=== PATIENT | female | born 1965 | race Caucasian/White ===

== ENCOUNTER 2016-05-10 11:21 | Emergency (ER) | payer OTHER ==
[~2016-05-10] VITALS: Ht 157.5 cm; Wt 60.0 kg
[~2016-05-10 11:21] MED LIST: BUPR75TA PO; CLIN1CAP5 PO; DEPA500T3 PO; FAMO20 PO; MAGN400 PO; MULT-65 PO; PAXI10TA PO; PRED20 PO; RISP1 PO
[2016-05-10 11:22] VITALS: BP 115/59; PULSE 84; RESP 20; TEMP 97.9; O2SAT 96
--- NOTE | 2016-05-10 11:51 | PD ---
HPI Chief Complaint: Back/ Neck Pain or Injury Time Seen by Provider: 11:51 Travel History International Travel<30 days: No Contact w/Intl Traveler<30days: No Traveled to known affect area: No History of Present Illness HPI 50-year-old [place] female presents to the emergency Department with complaints of neck pain, back pain, radicular symptoms in the left arm, and worsening headache over the past several days. She did slip and fall proximal 2 weeks ago and symptoms gotten progressively worse since that time. She states her headache is 9/10 which is unusual for her she does have a history of migraines but she states this is worse and different. She states when she sits or stands she feels off balance and dizzy but not vertiginous. She denies or vomiting. She denies fever or chills. Her pain in the neck and shoulders is 9 out of 10 currently and worse with any type of movement. She states she is allergic to morphine, metronidazole, and Bactrim. PFSH Past Medical History Arthritis: Yes (RA) Asthma: Yes (CHILDHOOD ) Autoimmune Disease: Yes (BEALLS PALSY) Anxiety: Yes Depression: Yes (MAJOR DEPRESSIVE DISORDER) Cancer: No Cardiovascular Problems: Yes (PRE-CORNARY ARTERY DISEASE) High Cholesterol: No Chemotherapy: No Chest Pain: Yes (PALPATATION) Congestive Heart Failure: No COPD: No Cerebrovascular Accident: Yes (TIA) Diabetes: No Diminished Hearing: No Endocrine: No GERD: No Glaucoma: No Genitourinary: No Headaches: Yes Hepatitis: No Hiatal Hernia: No Hypertension: No Immune Disorder: No Kidney Stones: No Musculoskeletal: Yes Neurologic: Yes (DEMYELINATION , hx mcgrath's palsy) Psychiatric: No Reproductive: No Respiratory: Yes (asthma) Immunizations Current: Yes Migraines: Yes Radiation Therapy: No Renal Failure: No Seizures: No Sickle Cell Disease: No Sleep Apnea: No Thyroid Disease: Yes (GOITER) ?: Not : 1 Para: 1 Past Surgical History Abdominal Surgery: No Arteriovenous Shunt: No Cardiac Surgery: No Ear Surgery: No Endocrine Surgery: No Eye Surgery: Yes (BILAT LASIK) Genitourinary Surgery: Yes (BLADDER TUCK) Gynecologic Surgery: Yes (HYSTERECTOMY) Hysterectomy: Yes Joint Replacement: No Oral Surgery: Yes Pacemaker: No Thoracic Surgery: No Other Surgery: Yes Social History Alcohol Use: No Tobacco Use: No Substance Use: No Allergies-Medications (Allergen,Severity, Reaction): Coded Allergies: Metronidazole (Verified Allergy, Severe, Hives from flagyl, 05/10/16) Bactrim (Verified Allergy, Intermediate, RASH, 05/10/16) Morphine (Verified Allergy, Intermediate, Nausea/Vomiting, 05/10/16) ALSO SEVERE HEADACHE PER PT Reported Meds & Prescriptions Reported Meds & Active Scripts Active Review of Systems Except as stated in HPI: all other systems reviewed are Neg General / Constitutional: No: Fever Eyes: No: Visual changes HENT: Positive: Headaches, Lightheadedness, Neck Stiffness, Neck Pain, No: Sore Throat, Rhinitis, Rhinorrhea, Congestion, Nosebleed, Dental Difficulties, Ear Discharge, Earache Cardiovascular: No: Chest Pain or Discomfort Respiratory: No: Cough, Shortness of Breath, Wheezing Gastrointestinal: No: Nausea, Vomiting, Diarrhea, Abdominal Pain Genitourinary: No: Dysuria Musculoskeletal: Positive: Myalgias, Arthralgias, Limited ROM, Pain (see history present illness.) Skin: No Rash Neurologic: Positive: Headache, Paresthesia (in the left arm.), No: Weakness, Syncope, Focal Abnormalities, Coordination Problem, Tremor, Ataxia, Change in Mentation, Incontinence, Seizures, Sensory Disturbance Psychiatric: No: Depression Endocrine: No: Polydipsia Hematologic/Lymphatic: No: Easy Bruising Physical Exam Narrative GENERAL: Patient appears in moderate distress. SKIN: Warm and dry. HEAD: Atraumatic. Normocephalic. EYES: Pupils equal and round. No scleral icterus. No injection or drainage. ENT: No nasal bleeding or discharge. Mucous membranes pink and moist. NECK: Trachea midline. No JVD. CARDIOVASCULAR: Regular rate and rhythm. RESPIRATORY: No accessory muscle use. Clear to auscultation. Breath sounds equal bilaterally. GASTROINTESTINAL: Abdomen soft, non-tender, nondistended. Hepatic and splenic margins not palpable. MUSCULOSKELETAL: Extremities without clubbing, cyanosis, or edema. No obvious deformities. NEUROLOGICAL: Awake and alert. No obvious cranial nerve deficits. Motor grossly within normal limits. Five out of 5 muscle strength in the arms and legs. Normal speech. PSYCHIATRIC: Appropriate mood and affect; insight and judgment normal. Data Data Last Documented VS Vital Signs Date Time Temp Pulse Resp B/P Pulse Ox O2 Delivery O2 Flow Rate FiO2 05/10/16 11:22 97.9 84 20 115/59 96 Room Air Orders Apply Cervical Collar (05/10/16 11:56) Ct Brain W/O Iv Contrast(Rout) (05/10/16 11:56) Ct Cerv Spine W/O Contrast (05/10/16 11:56) Complete Blood Count With Diff (05/10/16 11:56) Comprehensive Metabolic Panel (05/10/16 11:56) Prothrombin Time / Inr (Pt) (05/10/16 11:56) Act Partial Throm Time (Ptt) (05/10/16 11:56) Iv Access Insert/Monitor (05/10/16 11:56) Ecg Monitoring (05/10/16 11:56) Oximetry (05/10/16 11:56) Ketorolac Inj (Toradol Inj) (05/10/16 13:00) Dexamethasone Inj (Decadron Inj) (05/10/16 13:00) Orphenadrine Sr (Norflex Cr) (05/10/16 13:00) Labs Laboratory Tests Test 05/10/16 12:15 White Blood Count 8.5 TH/MM3 Red Blood Count 4.16 MIL/MM3 Hemoglobin 13.1 GM/DL Hematocrit 37.6 % Mean Corpuscular Volume 90.3 FL Mean Corpuscular Hemoglobin 31.5 PG Mean Corpuscular Hemoglobin 34.8 % Concent Red Cell Distribution Width 12.8 % Platelet Count 272 TH/MM3 Mean Platelet Volume 7.5 FL Neutrophils (%) (Auto) 73.2 % Lymphocytes (%) (Auto) 11.4 % Monocytes (%) (Auto) 7.5 % Eosinophils (%) (Auto) 7.4 % Basophils (%) (Auto) 0.5 % Neutrophils # (Auto) 6.2 TH/MM3 Lymphocytes # (Auto) 1.0 TH/MM3 Monocytes # (Auto) 0.6 TH/MM3 Eosinophils # (Auto) 0.6 TH/MM3 Basophils # (Auto) 0.0 TH/MM3 CBC Comment DIFF FINAL Differential Comment Prothrombin Time 10.0 SEC Prothromb Time International 0.9 RATIO Ratio Activated Partial 23.4 SEC Thromboplast Time Sodium Level 140 MEQ/L Potassium Level 3.9 MEQ/L Chloride Level 102 MEQ/L Carbon Dioxide Level 30.0 MEQ/L Anion Gap 8 MEQ/L Blood Urea Nitrogen 14 MG/DL Creatinine 0.91 MG/DL Estimat Glomerular Filtration 66 ML/MIN Rate Random Glucose 86 MG/DL Calcium Level 9.4 MG/DL Total Bilirubin 0.2 MG/DL Aspartate Amino Transf 28 U/L (AST/SGOT) Alanine Aminotransferase 49 U/L (ALT/SGPT) Alkaline Phosphatase 79 U/L Total Protein 7.7 GM/DL Albumin 4.3 GM/DL MDM Medical Decision Making Medical Screen Exam Complete: Yes Emergency Medical Condition: Yes Differential Diagnosis Fall. Cervical neck strain. Cervical disc issue. Radiculopathy. Back pain. Muscle spasm. Narrative Course Patient is medically stable at time of exam. Cervical collar is placed on the patient due to her radicular symptoms and bony neck pain. CT of the head and neck is ordered. Labs ordered including CBC, CMP, PT PTT and INR. CT of the head shows no acute bleed or other acute findings. Patient is given 60 mg Toradol IV, 10 mg Decadron IV, and 100 mg [address] by mouth. CT of the neck shows arthritic changes but no acute process. Per radiologist. Labs are within normal limits. Patient feels somewhat improved after the medications as stated above. Patient felt stable to be discharged home. Patient will be treated with prednisone 20 mg twice a day 7 days. Patient is given Norflex 100 mg twice a day #20. Patient is also given tramadol 50 mg one every 6 hours when necessary pain. Patient should follow-up with the [facility] next week as discussed. Patient can return to emergency Department with worsening symptoms as needed. Diagnosis Primary Impression: Cervical strain, acute Qualified Code: S16.1XXA - Cervical strain, acute, initial encounter Additional Impression: Muscle spasm Referrals: [facility] [place] 1 week Patient Instructions: Cervical Sprain (ED), General Instructions, Muscle Spasm (ED) Additional Instructions: Patient felt stable to be discharged home. Patient will be treated with prednisone 20 mg twice a day 7 days. Patient is given Norflex 100 mg twice a day #20. Patient is also given tramadol 50 mg one every 6 hours when necessary pain. Patient should follow-up with the [facility] next week as discussed. Patient can return to emergency Department with worsening symptoms as needed. Med/Other Pt SpecificInfo: Prescription(s) given Disposition: DISCHARGE HOME Condition: Stable Angelo Gupta May 10, 2016 11:51
[2016-05-10 12:35] LABS: AUTOMATED NEUTROPHIL # 6.2 TH/MM3 (1.8-7.7); BASOPHIL % 0.5 % (0.0-2.0); EOSINOPHIL # 0.6 TH/MM3 (0-0.4); EOSINOPHIL % 7.4 % (0.0-4.0); HEMATOCRIT 37.6 % (35.0-46.0); HEMO FLAGS DIFF FINAL; LYMPH % 11.4 % (9.0-44.0); MEAN CELL VOLUME 90.3 FL (80.0-100.0); MEAN CORPUSCULAR HEMOGLOBIN 31.5 PG (27.0-34.0); MEAN CORPUSCULAR HGB CONC 34.8 % (32.0-36.0); MONO % 7.5 % (0.0-8.0); NEUT % 73.2 % (16.0-70.0); PLATELET COUNT 272 TH/MM3 (150-450); RED BLOOD COUNT 4.16 MIL/MM3 (4.00-5.30); RED CELL DISTRIBUTION WIDTH 12.8 % (11.6-17.2); WHITE BLOOD COUNT 8.5 TH/MM3 (4.0-11.0)
[2016-05-10 12:46] LABS: APTT (PATIENT) 23.4 SEC (24.3-30.1); INTERNATIONAL NORMALIZED RATIO 0.9 RATIO
[2016-05-10 12:50] LABS: ALT (GPT) 49 U/L (10-53); ANION GAP 8 MEQ/L (5-15); AST (GOT) 28 U/L (15-37); BLOOD UREA NITROGEN 14 MG/DL (7-18); CHLORIDE 102 MEQ/L (98-107); GLOMERULAR FILTRATION RATE 66 ML/MIN (>89); POTASSIUM 3.9 MEQ/L (3.5-5.1); SODIUM (NA) 140 MEQ/L (136-145)
[2016-05-10 12:52] LABS: ALKALINE PHOSPHATASE 79 U/L (45-117); TOTAL BILIRUBIN ADULT 0.2 MG/DL (0.2-1.0)
--- NOTE | 2016-05-10 12:52 | RADRPT ---
EXAM DATE/TIME: 05/10/2016 12:25 [facility] COMPARISON: CT BRAIN W/O CONTRAST, December 21, 2014, 13:31. INDICATIONS : Cephalgia. Fall two days ago. RADIATION DOSE: 28.26 CTDIvol (mGy) MEDICAL HISTORY : Cerebrovascular disease. SURGICAL HISTORY : None. ENCOUNTER: Initial ACUITY: 1 day PAIN SCALE: 4/10 LOCATION: cranial TECHNIQUE: Multiple contiguous axial images were obtained of the head. Using automated exposure control and adj ustment of the mA and/or kV according to patient size, radiation dose was kept as low as reasonably a chievable to obtain optimal diagnostic quality images. FINDINGS: CEREBRUM: The ventricles are normal for age. No evidence of midline shift, mass lesion, hemorrhage or acute in farction. No extra-axial fluid collections are seen. POSTERIOR FOSSA: The cerebellum and brainstem are intact. The 4th ventricle is midline. The cerebellopontine angle i s unremarkable. EXTRACRANIAL: The visualized portion of the orbits is intact. SKULL: The calvaria is intact. No evidence of skull fracture. CONCLUSION: No acute disease. Markell Del Valle MD FACR on May 10, 2016 at 12:50 Board Certified Radiologist. This report was verified electronically.
[2016-05-10] MEDS ORDERED: ORPHENADRINE CITRATE 100 MG SUSTAINED RELEASE TAB PO ONE (13:00)
[2016-05-10] MEDS ORDERED: KETOROLAC TROMETHAMINE 60 MG/2 ML (IM) VIAL IM ONE (13:00)
[2016-05-10] MEDS ORDERED: DEXAMETHASONE SOD PHOS 20 MG/5 ML VIAL IV PUSH ONE (13:00)
--- NOTE | 2016-05-10 13:26 | RADRPT ---
EXAM DATE/TIME: 05/10/2016 12:25 [facility] COMPARISON: No previous studies available for comparison. INDICATIONS : Fall two days ago. Neck pain. RADIATION DOSE: 19.45 CTDIvol (mGy) MEDICAL HISTORY : Cerebrovascular disease. Cervical spine surgery. SURGICAL HISTORY : None. ENCOUNTER: Initial ACUITY: 1 day PAIN SCALE: 5/10 LOCATION: neck TECHNIQUE: Volumetric scanning of the cervical spine was performed. Multiplanar reconstructions in the sagittal, coronal and oblique axial planes were performed. Using automated exposure control and adjustment o f the mA and/or kV according to patient size, radiation dose was kept as low as reasonably achievable to obtain optimal diagnostic quality images. FINDINGS: There are degenerative changes present in the cervical spine. C1 and C2 are unremarkable. C2-C3: The bony spinal canal is normal in size. No evidence of disc bulge or herniation. The neural forami na are bilaterally patent. C3-C4: The bony spinal canal is normal in size. No evidence of disc bulge or herniation. The neural forami na are bilaterally patent. C4-C5: The bony spinal canal is normal in size. No evidence of disc bulge or herniation. The neural forami na are bilaterally patent. C5-C6: Mild uncinate ridging is present without significant spinal stenosis, neural foramina are adequate. C6-C7: The bony spinal canal is normal in size. No evidence of disc bulge or herniation. The neural forami na are bilaterally patent. C7-T1: The bony spinal canal is normal in size. No evidence of disc bulge or herniation. The neural forami na are bilaterally patent. CONCLUSION: Degenerative changes as described above. Markell Del Valle MD FACR on May 10, 2016 at 12:51 Board Certified Radiologist. This report was verified electronically.
[2016-05-10] MEDS ORDERED: ORPH100T99 PO (13:44)
[2016-05-10] MEDS ORDERED: TRAM50TA PO (13:44)
[2016-05-10] MEDS ORDERED: PRED20 PO (13:44)
== END 2016-05-10 14:01 | disposition home or self-care (01) ==
LOC: NEPB 11:21
DX: S16.1XXA Strain of muscle, fascia and tendon at neck level, initial encounter (principal); M62.838 Other muscle spasm; R51 Headache; G51.0 Bell's palsy; Z86.73 Personal history of transient ischemic attack (TIA), and cerebral infarction without residual deficits; W01.0XXA Fall on same level from slipping, tripping and stumbling without subsequent striking against object, initial encounter; Y93.9 Activity, unspecified; Y92.9 Unspecified place or not applicable
CPT/HCPCS: 70450; 72125; 80053; 85025; 85610; 85730; 96372; 96374; 99284; J1100; J1885

== ENCOUNTER 2016-05-28 00:49 | Emergency (ER) | payer OTHER ==
[~2016-05-28] VITALS: Ht 157.5 cm; Wt 60.0 kg
[~2016-05-28 00:49] MED LIST changes: -BUPR75TA PO; -CLIN1CAP5 PO; -DEPA500T3 PO; -FAMO20 PO; -MAGN400 PO; -MULT-65 PO; +ORPH100T99 PO; -PAXI10TA PO; -RISP1 PO; +TRAM50TA PO
[2016-05-28 00:52] VITALS: BP 121/63; PULSE 95; RESP 16; TEMP 97.8; O2SAT 98
[2016-05-28 03:58] VITALS: BP 113/59; PULSE 102; RESP 16; TEMP 98.5; O2SAT 95
[2016-05-28 04:12] LABS: AUTOMATED NEUTROPHIL # 8.7 TH/MM3 (1.8-7.7); BASOPHIL # 0.1 TH/MM3 (0-0.2); BASOPHIL % 0.5 % (0.0-2.0); EOSINOPHIL # 0.9 TH/MM3 (0-0.4); EOSINOPHIL % 7.6 % (0.0-4.0); HEMO FLAGS DIFF FINAL; LYMPH % 7.2 % (9.0-44.0); LYMPHOCYTE # 0.8 TH/MM3 (1.0-4.8); MEAN CELL VOLUME 89.4 FL (80.0-100.0); MEAN CORPUSCULAR HEMOGLOBIN 31.8 PG (27.0-34.0); MEAN CORPUSCULAR HGB CONC 35.6 % (32.0-36.0); MONO % 8.6 % (0.0-8.0); NEUT % 76.1 % (16.0-70.0); PLATELET COUNT 270 TH/MM3 (150-450); RED BLOOD COUNT 4.02 MIL/MM3 (4.00-5.30); RED CELL DISTRIBUTION WIDTH 12.9 % (11.6-17.2); WHITE BLOOD COUNT 11.4 TH/MM3 (4.0-11.0)
[2016-05-28] MEDS ORDERED: KETOROLAC TROMETHAMINE 30 MG/ML (IVP) VIAL IV PUSH ONE (04:45)
[2016-05-28] MEDS ORDERED: ONDANSETRON HCL 4 MG/2 ML VIAL IV ONE (04:45)
[2016-05-28] MEDS ORDERED: SODIUM CHLOR 0.9% 1000 ML INJ 1,000 ML IV ONE (04:45)
[2016-05-28 04:47] LABS: ALKALINE PHOSPHATASE 103 U/L (45-117); TOTAL BILIRUBIN ADULT 0.2 MG/DL (0.2-1.0)
[2016-05-28 04:56] LABS: ALT (GPT) 112 U/L (10-53); ANION GAP 7 MEQ/L (5-15); AST (GOT) 52 U/L (15-37); BICARBONATE 28.1 MEQ/L (21.0-32.0); BLOOD UREA NITROGEN 9 MG/DL (7-18); CHLORIDE 106 MEQ/L (98-107); GLOMERULAR FILTRATION RATE 67 ML/MIN (>89); SODIUM (NA) 141 MEQ/L (136-145)
[2016-05-28 04:57] LABS: POTASSIUM 4.1 MEQ/L (3.5-5.1)
[2016-05-28 05:05] LABS: BLOOD, URINE TRACE (NEG); COMMENT (UR) CULT NOT INDICATED; CULTURE IF INDICATED CULT NOT INDICATED; GLUCOSE,URINE NEG (NEG); KETONE, URINE NEG (NEG); MUCUS URINE FEW /lpf (OCC); NITRITE,URINE NEG (NEG); PH, URINE 5.5 (5.0-8.5); SQUAMOUS EPITHELIAL CELL URINE 5 /hpf (0-5); URINE COLOR YELLOW (YELLW/STRAW)
[2016-05-28] MEDS ORDERED: IOHEXOL 350 MG/ML 10 ML VIAL (for RAD DIAG) IV ONE (05:28)
--- NOTE | 2016-05-28 05:40 | RADRPT ---
EXAM DATE/TIME: 05/28/2016 05:24 [facility] COMPARISON: No previous studies available for comparison. INDICATIONS : Right upper abdomen and flank pain. IV CONTRAST: 95 cc Omnipaque 350 (iohexol) IV ORAL CONTRAST: No oral contrast ingested. RADIATION DOSE: 6.39 CTDIvol (mGy) MEDICAL HISTORY : Cardiovascular disease. SURGICAL HISTORY : Hysterectomy. ENCOUNTER: Initial ACUITY: 4 - 6 days PAIN SCALE: 9/10 LOCATION: Right upper abdomen and flank. TECHNIQUE: Volumetric scanning of the abdomen and pelvis was performed. Using automated exposure control and ad justment of the mA and/or kV according to patient size, radiation dose was kept as low as reasonably achievable to obtain optimal diagnostic quality images. FINDINGS: Small pericardial effusion. Liver, gallbladder, spleen, pancreas, adrenal glands are normal. Small hi atal hernia. Kidneys unremarkable. The urinary bladder unremarkable. Left ovary is normal. The patien t is status post hysterectomy. Right ovary not well visualized. A large amount of stool is noted thro ughout the colon. The appendix is normal. No free fluid or free air. Osseous structures are intact. L dami bases are clear. No inflammatory changes are seen within the abdomen or pelvis. CONCLUSION: 1. Large amount of stool throughout the colon which can be seen with constipation. 2. Small pericardial effusion. Isaac Mayorga MD on May 28, 2016 at 5:36 Board Certified Radiologist. This report was verified electronically.
--- NOTE | 2016-05-28 06:36 | PD ---
HPI Chief Complaint: Abdominal Pain Time Seen by Provider: 03:54 Travel History International Travel<30 days: No Contact w/Intl Traveler<30days: No Traveled to known affect area: No History of Present Illness HPI The patient is a 50 year old female who presents to the [facility] emergency department with a history of abdominal pain that she reports began on . The patient reports that the pain has been coming and going, however since yesterday at 11 AM it became constant. She reports that the pain as an aching sensation that is constant with intermittent sharp spasms that shoots through to the right side of her back. She reports that she's had nausea and vomiting 6 over the last 24 hours. She denies having any diarrhea. Her last bowel movement was yesterday and was normal. She denies having any blood in her stool or black or tarry stools. The patient reports that when this first started she was seen at [facility] and had an evaluation done. The patient provides her laboratory studies at this time. Her laboratory studies are remarkable for an AST of 49, ALT of 110. An ultrasound was done and showed no evidence of gallstones. The patient was discharged home with a prescription for Bentyl, Zofran, and tramadol. The patient reports that she has had some indigestion. She reports that the tramadol has not been helping. The patient is followed by the [facility] for her primary care. The patient denies any recent fevers, cough, congestion, neck pain, chest pain, shortness of breath,urinary symptoms, or neurologic symptoms. [facility] Past Medical History Narrative Medical The patient's past medical history is significant for a history of migraine headaches, anxiety, depression, Ferrer's palsy, palpitations. Arthritis: Yes (RA) Asthma: Yes (CHILDHOOD ) Autoimmune Disease: Yes (BEALLS PALSY) Anxiety: Yes Depression: Yes (MAJOR DEPRESSIVE DISORDER) Cancer: No Cardiovascular Problems: Yes (PRE-CORNARY ARTERY DISEASE) High Cholesterol: No Chemotherapy: No Chest Pain: Yes (PALPATATION) Congestive Heart Failure: No COPD: No Cerebrovascular Accident: Yes (TIA) Diabetes: No Diminished Hearing: No Endocrine: No GERD: No Glaucoma: No Genitourinary: No Headaches: Yes Hepatitis: No Hiatal Hernia: No Hypertension: No Immune Disorder: No Kidney Stones: No Musculoskeletal: Yes Neurologic: Yes (DEMYELINATION , hx ferrer's palsy) Psychiatric: No Reproductive: No Respiratory: Yes (asthma) Immunizations Current: Yes Migraines: Yes Radiation Therapy: No Renal Failure: No Seizures: No Sickle Cell Disease: No Sleep Apnea: No Thyroid Disease: Yes (GOITER) ?: Not : 1 Para: 1 Past Surgical History Narrative Surgical The patient's past surgical history is significant for a hysterectomy. Abdominal Surgery: No Arteriovenous Shunt: No Cardiac Surgery: No Ear Surgery: No Endocrine Surgery: No Eye Surgery: Yes (BILAT LASIK) Genitourinary Surgery: Yes (BLADDER TUCK) Gynecologic Surgery: Yes (HYSTERECTOMY) Hysterectomy: Yes Joint Replacement: No Oral Surgery: Yes Pacemaker: No Thoracic Surgery: No Other Surgery: Yes Social History Alcohol Use: No Tobacco Use: No Substance Use: No Allergies-Medications (Allergen,Severity, Reaction): Coded Allergies: Metronidazole (Verified Allergy, Severe, Hives from flagyl, 05/28/16) Bactrim (Verified Allergy, Intermediate, RASH, 05/28/16) Morphine (Verified Allergy, Intermediate, Nausea/Vomiting, 05/28/16) ALSO SEVERE HEADACHE PER PT Reported Meds & Prescriptions Reported Meds & Active Scripts Active Tramadol (Tramadol HCl) 50 Mg Tab 50 Mg PO Q6H PRN Prednisone 20 Mg Tab 20 Mg PO BID Orphenadrine CR (Orphenadrine Citrate) 100 Mg Tab 100 Mg PO Q12HR Review of Systems Except as stated in HPI: all other systems reviewed are Neg General / Constitutional: No: Fever Eyes: No: Visual changes HENT: No: Headaches Cardiovascular: No: Chest Pain or Discomfort Respiratory: No: Shortness of Breath Gastrointestinal: Positive: Nausea, Vomiting, Abdominal Pain, Indigestion, No : Diarrhea, Constipation, Changes in Bowel Habits, Loss of Appetite Genitourinary: Positive: Flank Pain (right flank pain), No: Urgency, Frequency , Dysuria Musculoskeletal: No: Pain Skin: No Rash Neurologic: No: Weakness Psychiatric: No: Depression Endocrine: No: Polydipsia Hematologic/Lymphatic: No: Easy Bruising Physical Exam Narrative General: The patient is a well-developed well-nourished female in no acute distress. Head and Neck exam: Head is normocephalic atraumatic. Eyes: EOMI, pupils are equal round and reactive to light. Nose: Midline septum with pink mucous membranes Mouth: Dentition unremarkable. Moist mucus membranes. Posterior oropharynx is not erythematous. No tonsillar hypertrophy. Uvula midline. Airway patent. Neck: No palpable lymphadenopathy. No nuchal rigidity. No thyromegaly. Cardiovascular: Regular rate and rhythm without murmurs, gallops, or rubs. Lungs: Clear to auscultation bilaterally. No wheezes, rhonchi, or rales. Abdomen: Soft, with reported tenderness on palpation in the right upper quadrant of the abdomen. The patient has no other tenderness on palpation of the other quadrants of the abdomen. No guarding, rebound, or rigidity. Negative [place] sign. Extremities: No clubbing, cyanosis, or edema. 2+ pulses in all 4 extremities. Back: No spinous process tenderness to palpation. The patient has right-sided CVA tenderness on palpation. Neurologic Exam: Grossly nonfocal. Skin Exam: No rash noted. Intact skin that is warm and dry. Data Data Last Documented VS Vital Signs Date Time Temp Pulse Resp B/P Pulse Ox O2 Delivery O2 Flow Rate FiO2 05/28/16 03:58 98.5 102 16 113/59 95 Room Air Orders Complete Blood Count With Diff (05/28/16 03:54) Comprehensive Metabolic Panel (05/28/16 03:54) Lipase (05/28/16 03:54) Urinalysis - C+S If Indicated (05/28/16 03:54) Iv Access Insert/Monitor (05/28/16 03:54) Ecg Monitoring (05/28/16 03:54) Oximetry (05/28/16 03:54) Ct Abd/Pel W Iv Contrast(Rout) (05/28/16 04:35) Ondansetron Inj (Zofran Inj) (05/28/16 04:45) Sodium Chlor 0.9% 1000 Ml Inj (Ns 1000 M (05/28/16 04:45) Ketorolac Inj (Toradol Inj) (05/28/16 04:45) Iohexol 350 Inj (Omnipaque 350 Inj) (05/28/16 05:28) Labs Laboratory Tests Test 05/28/16 05/28/16 04:00 04:45 White Blood Count 11.4 TH/MM3 Red Blood Count 4.02 MIL/MM3 Hemoglobin 12.8 GM/DL Hematocrit 36.0 % Mean Corpuscular Volume 89.4 FL Mean Corpuscular Hemoglobin 31.8 PG Mean Corpuscular Hemoglobin 35.6 % Concent Red Cell Distribution Width 12.9 % Platelet Count 270 TH/MM3 Mean Platelet Volume 7.1 FL Neutrophils (%) (Auto) 76.1 % Lymphocytes (%) (Auto) 7.2 % Monocytes (%) (Auto) 8.6 % Eosinophils (%) (Auto) 7.6 % Basophils (%) (Auto) 0.5 % Neutrophils # (Auto) 8.7 TH/MM3 Lymphocytes # (Auto) 0.8 TH/MM3 Monocytes # (Auto) 1.0 TH/MM3 Eosinophils # (Auto) 0.9 TH/MM3 Basophils # (Auto) 0.1 TH/MM3 CBC Comment DIFF FINAL Differential Comment Sodium Level 141 MEQ/L Potassium Level 4.1 MEQ/L Chloride Level 106 MEQ/L Carbon Dioxide Level 28.1 MEQ/L Anion Gap 7 MEQ/L Blood Urea Nitrogen 9 MG/DL Creatinine 0.89 MG/DL Estimat Glomerular Filtration 67 ML/MIN Rate Random Glucose 108 MG/DL Calcium Level 9.0 MG/DL Total Bilirubin 0.2 MG/DL Aspartate Amino Transf 52 U/L (AST/SGOT) Alanine Aminotransferase 112 U/L (ALT/SGPT) Alkaline Phosphatase 103 U/L Total Protein 7.7 GM/DL Albumin 3.8 GM/DL Lipase 246 U/L Urine Color YELLOW Urine Turbidity HAZY Urine pH 5.5 Urine Specific [place] 1.016 Urine Protein NEG mg/dL Urine Glucose (UA) NEG mg/dL Urine Ketones NEG mg/dL Urine Occult Blood TRACE Urine Nitrite NEG Urine Bilirubin NEG Urine Urobilinogen LESS THAN 2.0 MG/DL Urine Leukocyte Esterase TRACE Urine RBC 1 /hpf Urine WBC 4 /hpf Urine Squamous Epithelial 5 /hpf Cells Urine Mucus FEW /lpf Microscopic Urinalysis Comment CULT NOT INDICATED MDM Medical Decision Making Medical Screen Exam Complete: Yes Emergency Medical Condition: Yes Medical Record Reviewed: Yes Interpretation(s) Last Impressions Abdomen/Pelvis CT 05/28/16 0435 Signed Impressions: Service Date/Time: Saturday, May 28, 2016 05:24 - CONCLUSION: 1. Large amount of stool throughout the colon which can be seen with constipation. 2. Small pericardial effusion. Isaac Mayorga MD Differential Diagnosis Pyelonephritis, versus cystitis, versus colitis, versus diverticulitis, versus hepatitis, versus kidney stone Narrative Course During the course of the patients emergency department visit, the patients history, examination, and differential diagnosis were reviewed with the patient. The patient had IV access obtained and blood work sent for analysis. The patient was placed on a patient monitor with oximetry and blood pressure monitoring. A CT scan of the abdomen and pelvis was ordered. The patient was provided Toradol 15 mg IV, normal saline 1 L IV fluid bolus, Zofran 4 mg IV. The patients laboratory studies were reviewed and remarkable for a white count of 11.4, hemoglobin 8, platelets 270, neutrophils 76.1, lymphocytes 7.2, monocytes 8.6 , CMP is remarkable for a glucose of 108, AST 52, ALT 112, urine shows a trace occult blood, trace leukocyte esterase, 1 rbc, 4 WBCs, few mucus. Radiology studies were reviewed and remarkable for a CT scan of the abdomen and pelvis that shows a large amount of stool throughout the colon which can be seen with constipation, small pericardial effusion. No other acute abnormality. The patient will be discharged home to start on MiraLAX for constipation. The patient is instructed to continue with the follow-up that was previously scheduled with her primary care physician regarding the continued workup of her abdominal pain. The patient is resting comfortably and feels better, is alert and in no distress. The patients results and examination findings were discussed with the patient. The repeat examination is unremarkable and benign. The history, exam, diagnostic testing, and current condition do not suggest any significant pathology to warrant further testing, continued ED treatment, admission, or surgical evaluation at this point. The vital signs have been stable. The patient does not have uncontrollable pain, intractable vomiting, or other significant symptoms. The patient's condition is stable and appropriate for discharge. The patient will pursue further outpatient evaluation with a primary care physician or other designated or consulting physician as indicated in the discharge instructions. The patient expressed understanding and was agreeable with this plan. Diagnosis Primary Impression: Abdominal pain Qualified Code: R10.11 - Right upper quadrant abdominal pain Referrals: Primary Care Physician 2 days Patient Instructions: Abdominal Pain (ED), General Instructions Med/Other Pt SpecificInfo: Prescription(s) given Scripts Polyethylene Glycol 3350 Powder (Miralax Powder)17 Gm Powd17 Gm PO DAILY #1 BOTTLE Ref 0 Mix and dissolve one measuring cap-ful (17 grams) in water or juice. Prov:Sanjuana Winkler MD 05/28/16 Disposition: 01 DISCHARGE HOME Condition: Stable Sanjuana Winkler MD May 28, 2016 06:36
[2016-05-28] MEDS ORDERED: MIRA33504 PO (06:42)
[2016-05-28 08:02] VITALS: BP 110/55
== END 2016-05-28 08:03 | disposition home or self-care (01) ==
LOC: NEPC 00:49
DX: I31.3 Pericardial effusion (noninflammatory) (principal); J45.909 Unspecified asthma, uncomplicated; Z86.73 Personal history of transient ischemic attack (TIA), and cerebral infarction without residual deficits
CPT/HCPCS: 74177; 80053; 81001; 83690; 85025; 96361; 96374; 96375; 99284; J1885; J2405; J7030; Q9967

== ENCOUNTER 2016-12-24 18:24 | Inpatient (IN) | payer OTHER, MEDICARE ==
[~2016-12-24] VITALS: Ht 157.5 cm; Wt 69.3 kg
[~2016-12-24 18:24] MED LIST changes: +MIRA33504 PO
[2016-12-24] MEDS ORDERED: GADODIAMIDE PF 287 MG/ML 5 ML VIAL (for RAD MRI) IV PUSH ONE (18:25)
[2016-12-24 18:26] VITALS: BP 133/75; PULSE 84; RESP 20; TEMP 98; O2SAT 94
[2016-12-24 18:40] VITALS: BP 140/93; PULSE 79; RESP 16; O2SAT 94
[2016-12-24] MEDS ORDERED: SODIUM CHLOR 0.9% 1000 ML INJ 1,000 ML IV ONE (18:48)
[2016-12-24 19:04] VITALS: BP 134/68; PULSE 78; RESP 22; O2SAT 96
--- NOTE | 2016-12-24 19:06 | RADRPT ---
EXAM DATE/TIME: 12/24/2016 18:55 [facility] COMPARISON: MRI BRAIN W/O CONTRAST, December 21, 2014, 18:38. CT BRAIN W/O CONTRAST, September 09, 2013, 18:38. CT BR AIN W/O CONTRAST, September 30, 2014, 1:45. CT BRAIN W/O CONTRAST, May 10, 2016, 12:25. INDICATIONS : Stroke Alert-slurred speech and left arm numbness. RADIATION DOSE: 28.75 CTDIvol (mGy) This report was called by myself to Dr. Ramirez at 19: 04 hours MEDICAL HISTORY : Prior TIA SURGICAL HISTORY : Non-responsive. ENCOUNTER: Initial ACUITY: 1 day PAIN SCALE: Non-responsive LOCATION: Bilateral cranial TECHNIQUE: Multiple contiguous axial images were obtained of the head. Using automated exposure control and adj ustment of the mA and/or kV according to patient size, radiation dose was kept as low as reasonably a chievable to obtain optimal diagnostic quality images. DICOM format image data is available electro nically for review and comparison. FINDINGS: There is no evidence for intracranial hemorrhage, mass effect, mass lesions, edema, or extra-axial fl uid collections. The visualized bony structures appear intact. The ventricles are normal size for t he patient's age. There are no signs of acute infarction for technique. Small area of encephalomalac ia is seen in right frontal lobe and present on the study from May 2016 not significantly changed. CONCLUSION: There is no evidence of any significant hemorrhage or mass effect. John King MD on December 24, 2016 at 19:00 Board Certified Radiologist. This report was verified electronically.
--- NOTE | 2016-12-24 19:06 | PD ---
HPI Chief Complaint: Neuro Symptoms/ Deficits Time Seen by Provider: 18:48 Travel History International Travel<30 days: No Contact w/Intl Traveler<30days: No Traveled to known affect area: No History of Present Illness HPI 51-year-old female came to the emergency room with history of left upper extremity tingling that started at 4:30 this morning. Patient says it started from the neck all the way down to the fingers. She finally came to the emergency room. She is also complaining of some heaviness of her left upper and left lower extremity. Vital signs are stable. No history of chest pain. Upon reviewing her old records patient has history of possible MS and been worked up for TIA in the past. Vital signs were stable. She seems slow to respond but anxious. She is awake and answering questions appropriately. [facility] Past Medical History Narrative Medical List of her past medical, surgical, social and family history is reviewed from the nursing note. Arthritis: Yes (RA) Asthma: Yes (CHILDHOOD ) Autoimmune Disease: Yes (BEALLS PALSY) Anxiety: Yes Depression: Yes (MAJOR DEPRESSIVE DISORDER) Cancer: No Cardiovascular Problems: Yes (PRE-CORNARY ARTERY DISEASE) High Cholesterol: No Chemotherapy: No Chest Pain: Yes (PALPATATION) Congestive Heart Failure: No COPD: No Cerebrovascular Accident: Yes (TIA) Diabetes: No Diminished Hearing: No Endocrine: No GERD: No Glaucoma: No Genitourinary: No Headaches: Yes Hepatitis: No Hiatal Hernia: No Hypertension: No Immune Disorder: No Kidney Stones: No Medical other: Yes (WORKING UP FOR MS) Musculoskeletal: Yes Neurologic: Yes (DEMYELINATION , hx mcgrath's palsy) Psychiatric: No Reproductive: No Respiratory: Yes (asthma) Immunizations Current: Yes Migraines: Yes Radiation Therapy: No Renal Failure: No Seizures: No Sickle Cell Disease: No Sleep Apnea: No Thyroid Disease: Yes (GOITER) ?: Not : 1 Para: 1 Past Surgical History Abdominal Surgery: No Arteriovenous Shunt: No Cardiac Surgery: No Ear Surgery: No Endocrine Surgery: No Eye Surgery: Yes (BILAT LASIK) Genitourinary Surgery: Yes (BLADDER TUCK) Gynecologic Surgery: Yes (HYSTERECTOMY) Hysterectomy: Yes Joint Replacement: No Oral Surgery: Yes Pacemaker: No Thoracic Surgery: No Other Surgery: Yes Social History Alcohol Use: No Tobacco Use: No Substance Use: No Allergies-Medications (Allergen,Severity, Reaction): Coded Allergies: metronidazole (Unverified Allergy, Severe, Hives from flagyl, 12/24/16) morphine (Unverified Allergy, Intermediate, Nausea/Vomiting, 12/24/16) ALSO SEVERE HEADACHE PER PT sulfamethoxazole (Unverified Allergy, Intermediate, RASH, 12/24/16) trimethoprim (Unverified Allergy, Intermediate, RASH, 12/24/16) Comments List of her allergies reviewed from the nursing note. Reported Meds & Prescriptions Reported Meds & Active Scripts Active Miralax Powder (Polyethylene Glycol 3350 Powder) 17 Gm Powd 17 Gm PO DAILY Mix and dissolve one measuring cap-ful (17 grams) in water or juice. Tramadol (Tramadol HCl) 50 Mg Tab 50 Mg PO Q6H PRN Prednisone 20 Mg Tab 20 Mg PO BID Orphenadrine CR (Orphenadrine Citrate) 100 Mg Tab 100 Mg PO Q12HR Narrative Medication List of her home medications reviewed from the nursing note. Review of Systems Except as stated in HPI: all other systems reviewed are Neg Neurologic: Positive: Focal Abnormalities, Paresthesia Physical Exam Narrative GENERAL: Awake, alert, anxious SKIN: Focused skin assessment warm/dry. HEAD: Atraumatic. Normocephalic. EYES: Pupils equal and round. No scleral icterus. No injection or drainage. ENT: No nasal bleeding or discharge. Mucous membranes pink and moist. NECK: Trachea midline. No JVD. CARDIOVASCULAR: Regular rate and rhythm. No murmur appreciated. RESPIRATORY: No accessory muscle use. Clear to auscultation. Breath sounds equal bilaterally. GASTROINTESTINAL: Abdomen soft, non-tender, nondistended. Hepatic and splenic margins not palpable. MUSCULOSKELETAL: No obvious deformities. No clubbing. No cyanosis. No edema. NEUROLOGICAL: Awake and alert. No obvious cranial nerve deficits. Motor grossly within normal limits. Normal speech.NIH stroke score of 1 PSYCHIATRIC: Appropriate mood and affect; insight and judgment normal. Data Data Last Documented VS Vital Signs Date Time Temp Pulse Resp B/P (MAP) Pulse Ox O2 Delivery O2 Flow Rate FiO2 12/24/16 19:29 100 Room Air 12/24/16 19:29 78 18 138/75 (96) 12/24/16 18:26 98.0 Orders Orders Diet Npo (12/24/16 Dinner) Activity Bed Rest (12/24/16 ) Electrocardiogram (12/24/16 ) I-Stat Creatinine (12/24/16 18:48) I-Stat Profile (12/24/16 18:48) Prothrombin Time / Inr (Pt) (12/24/16 18:48) Act Partial Throm Time (Ptt) (12/24/16 18:48) Complete Blood Count With Diff (12/24/16 18:48) Fibrinogen (12/24/16 18:48) Creatine Kinase (Cpk) (12/24/16 18:48) Troponin I (12/24/16 18:48) Ua Includes Microscopic (12/24/16 18:48) Drug Screen, Random Urine (12/24/16 18:48) Type And Screen (12/24/16 18:48) Ct Brain W/O Iv Contrast(Rout) (12/24/16 ) Beta Hcg (Quant/Titer) (12/24/16 18:48) Consult Neurology (12/24/16 ) Blood Glucose (12/24/16 18:48) Ecg Monitoring (12/24/16 18:48) Neuro Checks Q2HX12,Q4H (12/24/16 18:48) Nursing Bedside Swallow Assess .ONCE (12/24/16 18:48) Iv Access Insert/Monitor (12/24/16 18:48) NPO (12/24/16 18:48) Oximetry (12/24/16 18:48) Oxygen Administration (12/24/16 18:48) Sodium Chlor 0.9% 1000 Ml Inj (Ns 1000 M (12/24/16 18:48) Resp Oxygen Pérez C Titrat 1-4 L (12/24/16 18:48) Cath For Specimen (12/24/16 18:48) (Hub Use Only)Inp Phy Cons/Ref (12/24/16 ) Mri Brain W&W/O Contrast (12/24/16 ) Mra Brain W/O Contrast (Cow) (12/24/16 ) CKMB (12/24/16 18:42) CKMB% (12/24/16 18:42) Labs Laboratory Tests Test 12/24/16 18:42 White Blood Count 7.1 TH/MM3 Red Blood Count 4.30 MIL/MM3 Hemoglobin 13.5 GM/DL Bedside Hemoglobin 13.6 G/DL Hematocrit 38.1 % Bedside Hematocrit 40.0 % Mean Corpuscular Volume 88.6 FL Mean Corpuscular Hemoglobin 31.3 PG Mean Corpuscular Hemoglobin Concent 35.4 % Red Cell Distribution Width 13.5 % Platelet Count 321 TH/MM3 Mean Platelet Volume 7.6 FL Neutrophils (%) (Auto) 46.6 % Lymphocytes (%) (Auto) 27.6 % Monocytes (%) (Auto) 9.7 % Eosinophils (%) (Auto) 15.6 % Basophils (%) (Auto) 0.5 % Neutrophils # (Auto) 3.3 TH/MM3 Lymphocytes # (Auto) 2.0 TH/MM3 Monocytes # (Auto) 0.7 TH/MM3 Eosinophils # (Auto) 1.1 TH/MM3 Basophils # (Auto) 0.0 TH/MM3 CBC Comment DIFF FINAL Differential Comment Prothrombin Time 10.0 SEC Prothromb Time International Ratio 0.9 RATIO Activated Partial Thromboplast Time 25.9 SEC Fibrinogen 349 mg/dL Bedside Sodium 140 MMOL/L Bedside Potassium 3.6 MMOL/L Bedside Chloride 102 MMOL/L Bedside Blood Urea Nitrogen 8 MG/DL Bedside Creatinine 0.8 MG/DL Bedside Glucose 96 MG/DL Total Creatine Kinase 220 U/L Troponin I LESS THAN 0.02 NG/ML Human Chorionic Gonadotropin, Quant 2 MIU/ML MDM Medical Decision Making Medical Screen Exam Complete: Yes Emergency Medical Condition: Yes Medical Record Reviewed: Yes Interpretation(s) Twelve-lead EKG was reviewed by me. Normal sinus rhythm, normal axis, nonspecific ST-T wave changes. Heart rate of 75 bpm. Differential Diagnosis CVA, MS exacerbation, TIA, intracranial bleed Narrative Course 7:11 PM stroke alert was called overhead even though the symptoms were minimal. NIH stroke score was minimal. I discussed the case with the neurologist Dr. Olson and after learning that patient has MS based on the MRI he wanted a stat MRI with and without contrast and MRA done. This has been ordered. He does not want to give TPA to this patient at this point. If the MRI and MRAs within normal limits patient will be admitted medically on IV steroid. Case will be signed over to the oncoming ER physician. Critical Care Narrative Aggregate critical care time was 30 minutes. Time to perform other separately billable procedures was not included in the critical care time. My time did not include minutes spent treating any other patients simultaneously or on activities that did not directly contribute to the patient's treatment. The services I provided to this patient were to treat and/or prevent clinically significant deterioration that could result in: Stroke alert I provided critical care services requiring my management, as noted below: Chart data review, documentation time, medication orders and management, vital sign assessments/reviewing monitor data, ordering and reviewing lab tests, ordering and interpreting/reviewing x-rays and diagnostic studies, care of the patient and discussion of the patient with the admitting physicians. Procedures EKG Prior to Arrival: No Physician Communication Physician Communication Dr. Whitney Ramirez,Marie Fierro MD Dec 24, 2016 19:06
[2016-12-24 19:12] LABS: AUTOMATED NEUTROPHIL # 3.3 TH/MM3 (1.8-7.7); BASOPHIL % 0.5 % (0.0-2.0); EOSINOPHIL # 1.1 TH/MM3 (0-0.4); EOSINOPHIL % 15.6 % (0.0-4.0); HEMATOCRIT 38.1 % (35.0-46.0); HEMO FLAGS DIFF FINAL; LYMPH % 27.6 % (9.0-44.0); MEAN CELL VOLUME 88.6 FL (80.0-100.0); MEAN CORPUSCULAR HEMOGLOBIN 31.3 PG (27.0-34.0); MEAN CORPUSCULAR HGB CONC 35.4 % (32.0-36.0); MONO % 9.7 % (0.0-8.0); NEUT % 46.6 % (16.0-70.0); PLATELET COUNT 321 TH/MM3 (150-450); RED CELL DISTRIBUTION WIDTH 13.5 % (11.6-17.2); WHITE BLOOD COUNT 7.1 TH/MM3 (4.0-11.0)
[2016-12-24 19:23] LABS: I-STAT POTASSIUM 3.6 MMOL/L (3.5-4.9); I-STAT SODIUM 140 MMOL/L (138-146)
[2016-12-24 19:29] VITALS: BP 138/75; PULSE 78; RESP 18; O2SAT 100
[2016-12-24 19:33] LABS: INTERNATIONAL NORMALIZED RATIO 0.9 RATIO
[2016-12-24 19:35] LABS: BETA HCG QUANT 2 MIU/ML (0-5); CREATINE KINASE 220 U/L (26-192)
[2016-12-24 19:38] LABS: APTT (PATIENT) 25.9 SEC (24.3-30.1)
[2016-12-24 19:48] LABS: CKMB 1.9 NG/ML (0.5-3.6)
--- NOTE | 2016-12-24 20:26 | RADRPT ---
EXAM DATE/TIME: 12/24/2016 19:29 [facility] COMPARISON: MRI BRAIN W/O CONTRAST, December 21, 2014, 18:38. MRA BRAIN W/O CONTRAST, December 24, 2016, 19:29. C T BRAIN W/O CONTRAST, December 24, 2016, 18:55. INDICATIONS : Stroke. Left sided numbness CONTRAST: 14 cc Omniscan (gadodiamide) IV MEDICAL HISTORY : None. SURGICAL HISTORY : Hysterectomy. ENCOUNTER: Initial ACUITY: 1 day PAIN SCORE: 0/10 LOCATION: Head TECHNIQUE: Multiplanar, multisequence MRI of the brain was performed both prior to and following the administrat ion of paramagnetic contrast. FINDINGS: There is no evidence for intracranial hemorrhage, mass effect, mass lesions, edema, or extra-axial fl uid collections. There are no signs of acute infarction for technique. The diffusion portion, and po stcontrast portion are unremarkable. Slight degree of brain atrophy is seen. Slight periventricular w surjit matter changes are seen nonspecific mostly consistent with chronic small vessel ischemic changes . CONCLUSION: Chronic atrophic and small vessel ischemic changes without any evidence for acute hemorrhage or mass effect. John King MD on December 24, 2016 at 20:23 Board Certified Radiologist. This report was verified electronically.
--- NOTE | 2016-12-24 20:27 | RADRPT ---
EXAM DATE/TIME: 12/24/2016 19:29 [facility] COMPARISON: No previous studies available for comparison. INDICATIONS : Stroke. Left sided numbness. MEDICAL HISTORY : None. SURGICAL HISTORY : Hysterectomy. Rotator cuff surgery. ENCOUNTER: Initial ACUITY: 1 day PAIN SCORE: 0/10 LOCATION: head Please note a normal MRA of the brain does not entirely exclude the possibility of a small aneurysm, nor the possibility of distal intracranial vessel disease. TECHNIQUE: 3D time of flight MRA was performed. Source images, multiplanar STS MIP, and 3D volume MIP reconstru ctions were reviewed. FINDINGS: No significant vascular malformations, vessel truncation or aneurysmal dilatations are seen. There is persistent circulation supplying the right [employer] normal variant. CONCLUSION: Unremarkable study. John King MD on December 24, 2016 at 20:25 Board Certified Radiologist. This report was verified electronically.
--- NOTE | 2016-12-24 20:29 | PD ---
Data Data Last Documented VS Vital Signs Date Time Temp Pulse Resp B/P (MAP) Pulse Ox O2 Delivery O2 Flow Rate FiO2 12/24/16 19:29 100 Room Air 12/24/16 19:29 78 18 138/75 (96) 12/24/16 18:26 98.0 Orders Orders Diet Npo (12/24/16 Dinner) Activity Bed Rest (12/24/16 ) Electrocardiogram (12/24/16 ) I-Stat Creatinine (12/24/16 18:48) I-Stat Profile (12/24/16 18:48) Prothrombin Time / Inr (Pt) (12/24/16 18:48) Act Partial Throm Time (Ptt) (12/24/16 18:48) Complete Blood Count With Diff (12/24/16 18:48) Fibrinogen (12/24/16 18:48) Creatine Kinase (Cpk) (12/24/16 18:48) Troponin I (12/24/16 18:48) Ua Includes Microscopic (12/24/16 18:48) Drug Screen, Random Urine (12/24/16 18:48) Type And Screen (12/24/16 18:48) Ct Brain W/O Iv Contrast(Rout) (12/24/16 ) Beta Hcg (Quant/Titer) (12/24/16 18:48) Consult Neurology (12/24/16 ) Blood Glucose (12/24/16 18:48) Ecg Monitoring (12/24/16 18:48) Neuro Checks Q2HX12,Q4H (12/24/16 18:48) Nursing Bedside Swallow Assess .ONCE (12/24/16 18:48) Iv Access Insert/Monitor (12/24/16 18:48) NPO (12/24/16 18:48) Oximetry (12/24/16 18:48) Oxygen Administration (12/24/16 18:48) Sodium Chlor 0.9% 1000 Ml Inj (Ns 1000 M (12/24/16 18:48) Resp Oxygen Pérez C Titrat 1-4 L (12/24/16 18:48) Cath For Specimen (12/24/16 18:48) (Hub Use Only)Inp Phy Cons/Ref (12/24/16 ) Mri Brain W&W/O Contrast (12/24/16 ) Mra Brain W/O Contrast (Cow) (12/24/16 ) CKMB (12/24/16 18:42) CKMB% (12/24/16 18:42) Gadodiamide Pf Inj (Omniscan Pf Inj) (12/24/16 18:25) Methylprednisolone So Succ Inj (Solumedr (12/24/16 21:00) Labs Laboratory Tests Test 12/24/16 18:42 12/24/16 20:15 White Blood Count 7.1 TH/MM3 Red Blood Count 4.30 MIL/MM3 Hemoglobin 13.5 GM/DL Bedside Hemoglobin 13.6 G/DL Hematocrit 38.1 % Bedside Hematocrit 40.0 % Mean Corpuscular Volume 88.6 FL Mean Corpuscular Hemoglobin 31.3 PG Mean Corpuscular Hemoglobin Concent 35.4 % Red Cell Distribution Width 13.5 % Platelet Count 321 TH/MM3 Mean Platelet Volume 7.6 FL Neutrophils (%) (Auto) 46.6 % Lymphocytes (%) (Auto) 27.6 % Monocytes (%) (Auto) 9.7 % Eosinophils (%) (Auto) 15.6 % Basophils (%) (Auto) 0.5 % Neutrophils # (Auto) 3.3 TH/MM3 Lymphocytes # (Auto) 2.0 TH/MM3 Monocytes # (Auto) 0.7 TH/MM3 Eosinophils # (Auto) 1.1 TH/MM3 Basophils # (Auto) 0.0 TH/MM3 CBC Comment DIFF FINAL Differential Comment Prothrombin Time 10.0 SEC Prothromb Time International Ratio 0.9 RATIO Activated Partial Thromboplast Time 25.9 SEC Fibrinogen 349 mg/dL Bedside Sodium 140 MMOL/L Bedside Potassium 3.6 MMOL/L Bedside Chloride 102 MMOL/L Bedside Blood Urea Nitrogen 8 MG/DL Bedside Creatinine 0.8 MG/DL Bedside Glucose 96 MG/DL Total Creatine Kinase 220 U/L Creatine Kinase MB 1.9 NG/ML Creatine Kinase MB % 0.9 % Troponin I LESS THAN 0.02 NG/ML Human Chorionic Gonadotropin, Quant 2 MIU/ML Urine Color COLORLESS Urine Turbidity CLEAR Urine pH 7.5 Urine Specific [place] 1.003 Urine Protein NEG mg/dL Urine Glucose (UA) NEG mg/dL Urine Ketones NEG mg/dL Urine Occult Blood NEG Urine Nitrite NEG Urine Bilirubin NEG Urine Urobilinogen LESS THAN 2.0 MG/DL Urine Leukocyte Esterase NEG Urine Squamous Epithelial Cells <1 /hpf Urine Opiates Screen NEG Urine Barbiturates Screen NEG Urine Amphetamines Screen NEG Urine Benzodiazepines Screen NEG Urine Cocaine Screen NEG Urine Cannabinoids Screen NEG MDM Medical Record Reviewed: Yes Supervised Visit with DARRYL: No Narrative Course During the course of the patients emergency department visit, the patients history, examination, and differential diagnosis were reviewed with the patient. The patient had IV access obtained and blood work sent for analysis. The patient was placed on a telemetry monitor with oximetry and blood pressure monitoring. The patient was initially seen by Dr. Ramirez. The patient was called as a stroke alert. The patient's case was discussed with the neurologist by Dr. Ramirez. As the symptoms were mild and the patient has a history of multiple sclerosis TPA was not recommended initially. Instead Dr. Olson recommended a stat MRI, MRA of the brain. At the conclusion of Dr. Ramirez's shift, she checked the MRI out to me to further discuss this with the neurologist. The patient was initially provided normal saline 70 mL per hour. The patients laboratory studies were reviewed and remarkable for CBC is unremarkable, i-STAT with creatinine is remarkable for a glucose of 96, creatinine is 0.8, CPK 220, MB percent 0.9, troponin I less than 0.02, quantitative beta hCG is 2. PT PTT within normal limits, fibrinogen 349, urine drug screen is negative. Urinalysis is unremarkable. Radiology studies were reviewed and remarkable for a CT scan of the brain that shows no acute abnormality, MRI of the brain shows chronic atrophic and small vessel ischemic changes without any evidence for acute hemorrhage or mass effect. MRA reveals an unremarkable study. The patient's case was discussed with the neurologist. He recommended Solu- Medrol 500 mg every 12 hours 2 doses. Neurology will see the patient in consultation in the morning. He also recommended that the patient be continued on aspirin 325 mg by mouth daily. The patients results were discussed with the patient, including the plan of care. I explained that further testing and/ or monitoring is indicated based on the patients history, examination, and/ or laboratory findings. Therefore, I recommended admission for additional evaluation. The patient expressed understanding and was agreeable with this plan. The patient was admitted to the hospital in [-] condition and sent to a bed under the care of [-]. Physician Communication Physician Communication I spoke to regarding this patient's case at 8:57 PM. He reviewed the patient's MRI and MRA of the brain. He recommended that the patient be continued on an adult aspirin daily and Solu-Medrol 500 mg every 12 hours 2 doses. Neurology will see the patient in consultation in the morning. He recommended that the patient be admitted to the hospitalist service. Diagnosis Primary Impression: Multiple neurological symptoms Additional Impression: History of multiple sclerosis Admitting Information Admitting Physician Requests: Admit Sanjuana Winkler MD Dec 24, 2016 20:29
[2016-12-24 20:38] LABS: BLOOD, URINE NEG (NEG); GLUCOSE,URINE NEG (NEG); KETONE, URINE NEG (NEG); NITRITE,URINE NEG (NEG); PH, URINE 7.5 (5.0-8.5); SQUAMOUS EPITHELIAL CELL URINE <1 /hpf (0-5); URINE COLOR COLORLESS (YELLW/STRAW)
[2016-12-24] MEDS ORDERED: methylPREDNISolone SO SUCC INJ 500 MG in DEXTROSE 5% IN WATER 100ML INJ 100 ML IV ONE ×2 (21:00)
[2016-12-24] MEDS ORDERED: ASPIRIN 325 MG TAB PO ONE (21:15)
[2016-12-24] MEDS ORDERED: SODIUM CHLORIDE 0.9% FLUSH 10 ML FLUSH IV FLUSH PRN (22:00)
[2016-12-24] MEDS ORDERED: NALOXONE HCL 0.4 MG/ML AMP IV PUSH PRN (22:00)
[2016-12-24 22:43] VITALS: BP 132/74; PULSE 78; RESP 16; O2SAT 99
[2016-12-24] MEDS: ACETAMINOPHEN 325 MG TAB PO PRN (23:48)
[2016-12-24 23:54] VITALS: BP 111/56; PULSE 74; RESP 18; TEMP 98.1; O2SAT 95
[2016-12-25] VITALS (7 sets, daily range): BP systolic 106–118; BP diastolic 53–58; PULSE 84–103; RESP 18–24; TEMP 97.8–98.5; O2SAT 92–95
[2016-12-25] MEDS: ACETAMINOPHEN 325 MG TAB PO PRN ×3 (04:17→14:25)
--- NOTE | 2016-12-25 08:06 | HHI.HP ---
HPI Service [facility] Primary Care Physician Unknown Admission Diagnosis Neurologic symptoms, MS exacerbation Diagnoses: Chief Complaint: left sided arm pain and numbness, blurry vision, slurred speech Travel History International Travel<30 Days: No Contact w/Intl Traveler <30 Da: No Traveled to Known Affected Are: No History of Present Illness 51 -year-old female with a past medical history significant for MS, chronic migraines, depression, and history of left-sided Ferrer's palsy came to the ED for ebvaluation of left arm pain and numbness, blurry vision and slurred. Speech. Says she has been in 2013 in the hospital and was diagnosed with poss MS. Patient has been healthy since then. Says left upper extremity pain that pressed to tingling and numbness that started at 4:30 this morning. Patient says it started from the neck all the way down to the fingers. She finally came to the emergency room. She is also complaining of some heaviness of her left upper and left lower extremity. Vital signs are stable. No history of chest pain. Upon reviewing her old records patient has history of possible MS and been worked up for TIA in the past. Vital signs were stable. She is awake and answering questions appropriately. Neurology was consulted recommended 2 doses of Solumol, will eval patient. Patient says she felt improved there after,. Says pain and numbness in the left arm improved. Feels her tongue is heavy and still with slurred speech She also still has blurry vision. No other complains at this time. No n/v/d/c. No fever ro chills. No cough. No urinary complaints. Review of Systems Except as stated in HPI: all other systems reviewed are Neg Past Family Social History Past Medical History MS Chronic migraines Depression History of left-sided Ferrer's Palsy Chronic lumbar back pain with radiculopathy Past Surgical History Right shoulder rotator cuff (2009) Partial hysterectomy (2006) Reported Medications Reported Meds & Active Scripts Active Miralax Powder (Polyethylene Glycol 3350 Powder) 17 Gm Powd 17 Gm PO DAILY Mix and dissolve one measuring cap-ful (17 grams) in water or juice. Tramadol (Tramadol HCl) 50 Mg Tab 50 Mg PO Q6H PRN Prednisone 20 Mg Tab 20 Mg PO BID Orphenadrine CR (Orphenadrine Citrate) 100 Mg Tab 100 Mg PO Q12HR Allergies: Coded Allergies: metronidazole (Unverified Allergy, Severe, Hives from flagyl, 12/24/16) morphine (Unverified Allergy, Intermediate, Nausea/Vomiting, 12/24/16) ALSO SEVERE HEADACHE PER PT sulfamethoxazole (Unverified Allergy, Intermediate, RASH, 12/24/16) trimethoprim (Unverified Allergy, Intermediate, RASH, 12/24/16) Family History Father: from possible carotid artery stenosis at age 87 Mother: DM, HTN, from CHF at age 85 Siblings: 5 sisters and 3 brothers: oldest brother: TIA at age 60, middle sister : CABGx3 at age 42, 2 sisters: DM, HTN 1 Son: juvenile rheumatoid arthritis, asthma Social History Denies Tobacco, Alcohol or Illicit drugs use Physical Exam Vital Signs Vital Signs Date Time Temp Pulse Resp B/P (MAP) Pulse Ox O2 Delivery O2 Flow Rate FiO2 12/25/16 05:20 18 12/25/16 05:15 21 12/25/16 03:44 98.0 86 18 112/56 (74) 94 12/24/16 23:54 98.1 74 18 111/56 (74) 95 12/24/16 22:45 12/24/16 22:43 78 16 132/74 (93) 99 Room Air 12/24/16 19:29 100 Room Air 12/24/16 19:29 78 18 138/75 (96) 100 Room Air 12/24/16 19:04 78 22 134/68 (90) 96 Room Air 12/24/16 19:04 97 Room Air 12/24/16 18:40 79 16 140/93 (109) 94 Room Air 12/24/16 18:26 98.0 84 20 133/75 (94) 94 Room Air Physical Exam GENERAL: This is a well-nourished, well-developed patient, in no apparent distress. SKIN: No rashes, ecchymoses or lesions. Cool and dry. HEAD: Atraumatic. Normocephalic. No temporal or scalp tenderness. EYES: Pupils equal round and reactive. Extraocular motions intact. No scleral icterus. No injection or drainage. ENT: Nose without bleeding, purulent drainage or septal hematoma. Throat without erythema, tonsillar hypertrophy or exudate. Uvula midline. Airway patent. NECK: Trachea midline. No JVD or lymphadenopathy. Supple, nontender, no meningeal signs. CARDIOVASCULAR: Regular rate and rhythm without murmurs, gallops, or rubs. RESPIRATORY: Clear to auscultation. Breath sounds equal bilaterally. No wheezes , rales, or rhonchi. GASTROINTESTINAL: Abdomen soft, non-tender, nondistended. No hepato-splenomegaly , or palpable masses. No guarding. MUSCULOSKELETAL: Extremities without clubbing, cyanosis, or edema. No joint tenderness, effusion, or edema noted. No calf tenderness. Negative Homans sign bilaterally. NEUROLOGICAL: Awake and alert. Cranial nerves II through XII intact. Motor and sensory grossly within normal limits. Five out of 5 muscle strength in all muscle groups on right 4/5 on the left, weak seed tester. Normal speech. Laboratory Laboratory Tests Test 12/24/16 18:42 12/24/16 20:15 White Blood Count 7.1 Red Blood Count 4.30 Hemoglobin 13.5 Bedside Hemoglobin 13.6 Hematocrit 38.1 Bedside Hematocrit 40.0 Mean Corpuscular Volume 88.6 Mean Corpuscular Hemoglobin 31.3 Mean Corpuscular Hemoglobin Concent 35.4 Red Cell Distribution Width 13.5 Platelet Count 321 Mean Platelet Volume 7.6 Neutrophils (%) (Auto) 46.6 Lymphocytes (%) (Auto) 27.6 Monocytes (%) (Auto) 9.7 Eosinophils (%) (Auto) 15.6 Basophils (%) (Auto) 0.5 Neutrophils # (Auto) 3.3 Lymphocytes # (Auto) 2.0 Monocytes # (Auto) 0.7 Eosinophils # (Auto) 1.1 Basophils # (Auto) 0.0 CBC Comment DIFF FINAL Differential Comment Prothrombin Time 10.0 Prothromb Time International Ratio 0.9 Activated Partial Thromboplast Time 25.9 Fibrinogen 349 Bedside Sodium 140 Bedside Potassium 3.6 Bedside Chloride 102 Bedside Blood Urea Nitrogen 8 Bedside Creatinine 0.8 Bedside Glucose 96 Total Creatine Kinase 220 Creatine Kinase MB 1.9 Creatine Kinase MB % 0.9 Troponin I LESS THAN 0.02 Human Chorionic Gonadotropin, Quant 2 Urine Color COLORLESS Urine Turbidity CLEAR Urine pH 7.5 Urine Specific [place] 1.003 Urine Protein NEG Urine Glucose (UA) NEG Urine Ketones NEG Urine Occult Blood NEG Urine Nitrite NEG Urine Bilirubin NEG Urine Urobilinogen LESS THAN 2.0 Urine Leukocyte Esterase NEG Urine Squamous Epithelial Cells <1 Urine Opiates Screen NEG Urine Barbiturates Screen NEG Urine Amphetamines Screen NEG Urine Benzodiazepines Screen NEG Urine Cocaine Screen NEG Urine Cannabinoids Screen NEG Result Diagram: 12/24/16 2042 Imaging Reported Meds & Active Scripts Active Miralax Powder (Polyethylene Glycol 3350 Powder) 17 Gm Powd 17 Gm PO DAILY Mix and dissolve one measuring cap-ful (17 grams) in water or juice. Tramadol (Tramadol HCl) 50 Mg Tab 50 Mg PO Q6H PRN Prednisone 20 Mg Tab 20 Mg PO BID Orphenadrine CR (Orphenadrine Citrate) 100 Mg Tab 100 Mg PO Q12HR Caprini VTE Risk Assessment Caprini VTE Risk Assessment: Mod/High Risk (score >= 2) Caprini Risk Assessment Model Point Value = 1 Point Value = 2 Point Value = 3 Point Value = 5 Age 41-60 Minor surgery BMI > 25 kg/m2 Swollen legs Varicose veins or History of unexplained or recurrent spontaneous Oral contraceptives or hormone replacement Sepsis (< 1 month) Serious lung disease, including pneumonia (< 1 month) Abnormal pulmonary function Acute myocardial infarction Congestive heart failure (< 1 month) History of inflammatory bowel disease Medical patient at bed rest Age 61-74 Arthroscopic surgery Major open surgery (> 45 min) Laparoscopic surgery (> 45 min) Malignancy Confined to bed (> 72 hours) Immobilizing plaster cast Central venous access Age >= 75 History of VTE Family history of VTE Factor V Leiden Prothrombin 33007D Lupus anticoagulant Anticardiolipin antibodies Elevated serum homocysteine Heparin-induced thrombocytopenia Other congenital or acquired thrombophilia Stroke (< 1 month) Elective arthroplasty Hip, pelvis, or leg fracture Acute spinal cord injury (< 1 month) Prophylaxis Regimen Total Risk Factor Score Risk Level Prophylaxis Regimen 0-1 Low Early ambulation 2 Moderate Order ONE of the following: *Sequential Compression Device (SCD) *Heparin 5000 units SQ BID 3-4 Higher Order ONE of the following medications: *Heparin 5000 units SQ TID *Enoxaparin/Lovenox 40 mg SQ daily (WT < 150 kg, CrCl > 30 mL/min) *Enoxaparin/Lovenox 30 mg SQ daily (WT < 150 kg, CrCl > 10-29 mL/min) *Enoxaparin/Lovenox 30 mg SQ BID (WT < 150 kg, CrCl > 30 mL/min) AND/OR *Sequential Compression Device (SCD) 5 or more Highest Order ONE of the following medications: *Heparin 5000 units SQ TID (Preferred with Epidurals) *Enoxaparin/Lovenox 40 mg SQ daily (WT < 150 kg, CrCl > 30 mL/min) *Enoxaparin/Lovenox 30 mg SQ daily (WT < 150 kg, CrCl > 10-29 mL/min) *Enoxaparin/Lovenox 30 mg SQ BID (WT < 150 kg, CrCl > 30 mL/min) AND *Sequential Compression Device (SCD) Assessment and Plan Assessment and Plan Pleasant 51 yo F with a past medical history significant for chronic migraines 10 years, depression, and history of left-sided Ferrer's palsy with a chief complaint of left-sided weakness that started last night. MS exacerbation - Consult Neurology, appreciate assistance - Neuro checks Q4, cardiac telemetry, O2 as needed - Solumedrol 500 mg IV BID - CT brain within normal limits, MRA and MRI reviewed - Consult PT and OT H/o Left thyroid nodule atient has a history of left thyroid nodule on MRI cervical spine September 2013. No appreciable nodule on physical exam. She can have follow-up MRI to monitor change as outpatient. Hx of migraines jaylin: Patient with a history of migraines ~10 years - We'll hold home medication Fioricet - Continue home medications: Divalproex ER 1000 mg daily, magnesium 400 mg daily Depression Continue home medications Discussed Condition With patient, nurse Physician Certification 2 Midnight Certification Type: Admission for Inpatient Services Order for Inpatient Services The services are ordered in accordance with Medicare regulations or non- Medicare payer requirements, as applicable. In the case of services not specified as inpatient-only, they are appropriately provided as inpatient services in accordance with the 2-midnight benchmark. Estimated LOS (days): 3 days is the estimated time the patient will need to remain in the hospital, assuming treatment plan goals are met and no additional complications. Post-Hospital Plan: Home Leti Holguin MD Dec 25, 2016 08:06
[2016-12-25] MEDS: SODIUM CHLORIDE 0.9% FLUSH 10 ML FLUSH IV FLUSH SCH ×2 (08:57→22:34)
[2016-12-25] MEDS ORDERED: ASPIRIN EC 325 MG TABEC PO SCH (09:00)
[2016-12-25] MEDS ORDERED: PANTOPRAZOLE SOD 40 MG DELAYED RELEASE TAB PO SCH (09:00)
[2016-12-25 13:40] LABS: AUTOMATED NEUTROPHIL # 11.4 TH/MM3 (1.8-7.7); BASOPHIL % 0.2 % (0.0-2.0); HEMATOCRIT 38.7 % (35.0-46.0); HEMO FLAGS DIFF FINAL; LYMPH % 5.6 % (9.0-44.0); LYMPHOCYTE # 0.7 TH/MM3 (1.0-4.8); MEAN CORPUSCULAR HEMOGLOBIN 30.6 PG (27.0-34.0); MEAN CORPUSCULAR HGB CONC 34.4 % (32.0-36.0); MONO % 0.6 % (0.0-8.0); NEUT % 93.6 % (16.0-70.0); PLATELET COUNT 283 TH/MM3 (150-450); RED BLOOD COUNT 4.35 MIL/MM3 (4.00-5.30); RED CELL DISTRIBUTION WIDTH 13.5 % (11.6-17.2); WHITE BLOOD COUNT 12.1 TH/MM3 (4.0-11.0)
--- NOTE | 2016-12-25 14:03 | EKG ---
Date Performed: 12/24/2016 Time Performed: 19:13:21 PTAGE: 51 years EKG: Sinus rhythm NONSPECIFIC T-WAVE ABNORMALITY BORDERLINE ECG INTERPRETATION BASED ON A DEFAULT AGE OF 40 YEARS PREVIOUS TRACING : 12/21/2014 12.46 DOCTOR: Benjamin Marley Interpretating Date/Time 12/25/2016 13:56:45
[2016-12-25 14:07] LABS: BICARBONATE 24.4 MEQ/L (21.0-32.0)
--- NOTE | 2016-12-25 15:29 | MB ---
cc: DIAMOND CLEVELAND M.D. DATE OF CONSULTATION: 12/25/2016 REASON FOR CONSULTATION Left-sided weakness. HISTORY OF PRESENT ILLNESS Ms. Wagner is a 59-year-old woman who has a history of migraine headaches, questionable history of multiple sclerosis, who came in yesterday with acute onset of left arm weakness as well as a significant headache. A Stroke Alert was called but her symptoms rapidly resolved. She feels back to baseline at the present time. PAST MEDICAL HISTORY 1. History of possible multiple sclerosis. 2. Migraine headaches. 3. Ferrer's palsy. 4. Lumbar radiculopathy. 5. Rotator cuff surgery on the right. 6. Partial hysterectomy. MEDICATIONS Medications at home are: 1. MiraLax. 2. Tramadol. 3. Prednisone. Current medications in the hospital are: 1. Aspirin 325 mg daily. 2. Protonix 40 mg daily. 3. She was given one dose of Solu-Medrol 500 mg. NEUROLOGIC EXAMINATION VITAL SIGNS: Blood pressure 160/58, pulse 103, respirations 24, temperature 98 degrees. HIGHER CORTICAL FUNCTIONS: Normal. CRANIAL NERVES: Intact. MOTOR EXAM: She has normal strength and tone of all groups in both upper and lower extremities. There is no drift. Fine motor skills are within normal limits. Reflexes symmetric. IMAGING MRI of the brain shows chronic atrophy, small vessel ischemic changes. No evidence for acute stroke is present. MRA brain: Normal. CT brain: Normal. LABORATORY White count 12,100, hemoglobin 13.3, hematocrit 38%, platelets 283,000. Sodium 138, potassium 4, chloride 107, CO2 24, BUN 11, creatinine 0.97, GFR 61, glucose 215. Tox screen is negative. Urinalysis is normal. IMPRESSION Transient left-sided weakness with severe migraine. Suspect this may have been a hemiplegic migraine. It has rapidly resolved. I do not feel this represents multiple sclerosis exacerbation due to the rapid resolution. RECOMMENDATIONS Start Topamax 25 mg b.i.d. for migraine prophylaxis. I would like to proceed with a CT angiogram of the neck and brain just to be sure there is no sign of carotid artery stenosis which could have caused a TIA. Consider transesophageal echocardiogram which could be accomplished as an outpatient. If the CTA is normal the patient could be discharged home and follow-up with me in about one week for further evaluation. Continue aspirin 325 mg daily. MD KASSANDRA Cornell /2:28 PM /3:17 PM
[2016-12-25] MEDS: TOPIRAMATE 25 MG TAB PO SCH ×2 (17:44→22:34)
[2016-12-25] MEDS ORDERED: IOHEXOL 350 MG/ML 10 ML VIAL (for RAD DIAG) IVCONTRAST ONE (18:48)
[2016-12-25] MEDS ORDERED: TOPA25TA8 PO (19:03)
--- NOTE | 2016-12-25 19:04 | HHI.DCPOC ---
Discharge Care Plan Goals to Promote Your Health * To prevent worsening of your condition and complications * To maintain your health at the optimal level Directions to Meet Your Goals Take your medications as prescribed Follow your dietary instruction Follow activity as directed Keep your appointments as scheduled Take your immunizations and boosters as scheduled If your symptoms worsen call your PCP, if no PCP go to Urgent Care Center or Emergency Room Smoking is Dangerous to Your Health. Avoid second hand smoke Call the 24-hour hour crisis hotline for domestic abuse at Leti Holguin MD Dec 25, 2016 19:04
[2016-12-25] MEDS ORDERED: ASPI81CH CHEW (19:11)
[2016-12-25] MEDS ORDERED: methylPREDNISolone SO SUCC INJ 500 MG in DEXTROSE 5% IN WATER 100ML INJ 100 ML IV ONE ×2 (21:00)
--- NOTE | 2016-12-25 23:05 | RADRPT ---
EXAM DATE/TIME: 12/25/2016 18:26 [facility] COMPARISON: No previous studies available for comparison. INDICATIONS : Patient having TIA IV CONTRAST: 75 cc Omnipaque 350 (iohexol) IV RADIATION DOSE: 16.48 CTDIvol (mGy) MEDICAL HISTORY : Multple sclerosis. SURGICAL HISTORY : Hysterectomy. ENCOUNTER: Initial ACUITY: 1 day PAIN SCALE: 0/10 LOCATION: CTA Neck Elevated flow velocities and ICA/CCA ratios have been found to correlate with increased degrees of vessel stenosis, calculated as percentage of diameter relative to a normal segment of distal ICA/CCA. TECHNIQUE: Volumetric scanning was performed using a multirow detector CT scanner. The data was post processed with a variety of visualization algorithms including full-volume maximum intensity projection, multip lanar sliding thin-slab reformation, curved-planar reformation, and surface-rendering techniques. Us ing automated exposure control and adjustment of the mA and/or kV according to patient size, radiatio n dose was kept as low as reasonably achievable to obtain optimal diagnostic quality images. DICOM f ormat image data is available electronically for review and comparison. FINDINGS: No abnormality is identified within the lung apices. There is normal origin of vessels from the arch without evidence of proximal stenosis. The left vertebral artery is dominant. Examination of the right common carotid artery demonstrates the vessel to be widely patent. There is 0-10% stenosis at the origin of the internal carotid artery. More distally the cervical internal nugent tid artery is intact. Examination of the left common carotid artery demonstrates the vessel to be widely patent. There is 0 -10% stenosis at the origin of the left internal carotid artery. More distally the cervical internal carotid artery is intact. Percent stenosis is calculated using the diameter of the stenotic region over the diameter of the nor mal distal internal carotid artery. CONCLUSION: 1. No evidence of hemodynamic significant lesion. There is There is 0-10% stenosis on the right and There is 0-10% stenosis on the left. Vic Mcgowan MD on December 25, 2016 at 23:01 Board Certified Radiologist. This report was verified electronically.
[2016-12-26 00:21] VITALS: BP 120/58; PULSE 71; RESP 19; TEMP 98.2; O2SAT 95
[2016-12-26 00:45] VITALS: PULSE 86
[2016-12-26 04:55] VITALS: BP 108/64; PULSE 90; RESP 18; TEMP 98.9; O2SAT 94
== END 2016-12-26 07:56 | disposition home or self-care (01) | DRG 103 ==
LOC: NEPE 18:24 → NEDA 21:45 → NEPHCDU 22:51
PROVIDERS: ADMIT Hospitalist; ATTEND Hospitalist
DX: G43.409 Hemiplegic migraine, not intractable, without status migrainosus (principal); G35 Multiple sclerosis; F32.9 Major depressive disorder, single episode, unspecified; H53.8 Other visual disturbances; M79.602 Pain in left arm; R20.0 Anesthesia of skin; R47.81 Slurred speech; M54.5 Low back pain; M54.16 Radiculopathy, lumbar region; G89.29 Other chronic pain; E04.1 Nontoxic single thyroid nodule
CPT/HCPCS: 70450; 70498; 70544; 70553; 80048; 80307; 81001; 82435; 82550; 82552; 82565; 82947; 84132; 84295; 84484; 84520; 84702; 85025; 85384; 85610; 85730; 86850; 86900; 86901; 93005; 96360; A9579; J2930; J7030; Q9967

== ENCOUNTER 2017-07-18 17:01 | Emergency (ER) | payer OTHER ==
[~2017-07-18] VITALS: Ht 157.5 cm; Wt 71.0 kg
[~2017-07-18 17:01] MED LIST changes: +ASPI-516 CHEW; +ORPH100T2 PO; -ORPH100T99 PO; +TOPI25 PO
[2017-07-18 17:05] VITALS: BP 122/62; PULSE 86; RESP 18; TEMP 98.8; O2SAT 95
--- NOTE | 2017-07-18 17:36 | PD ---
HPI Chief Complaint: Musculoskeletal Complaint Time Seen by Provider: 17:17 Travel History International Travel<30 days: No Contact w/Intl Traveler<30days: No Traveled to known affect area: No History of Present Illness HPI 51-year-old female presents emergency department complaining of left foot and left knee pain. Patient states that her left heel began hurting 1-2 weeks ago and worsened over the last day so she decided to come in for evaluation. Patient states that the pain is worse in the morning upon standing and feels that she has to stand on the side of her foot to reduce her pain. She describes the pain on the bottom of her heel as pins, worse with standing. The pain is mild to moderate in severity. Patient says that she does not have a regular job but does work at home and is having difficulty because of the pain. She says that her left knee started hurting recently as she is favoring the left foot. She is says her pain is mild in severity, nonradiating and only with walking. She denies any trauma. Denies numbness or tingling of the extremity. Says she has a history of MS and is a disabled . PFSH Past Medical History Arthritis: Yes (RA) Asthma: Yes (CHILDHOOD ) Autoimmune Disease: Yes (BEALLS PALSY) Anxiety: Yes Depression: Yes (MAJOR DEPRESSIVE DISORDER) Cancer: No Cardiovascular Problems: Yes (PRE-CORNARY ARTERY DISEASE) High Cholesterol: Yes (does not take anything for it) Chemotherapy: No Chest Pain: Yes (PALPATATION) Congestive Heart Failure: No COPD: No Cerebrovascular Accident: Yes (TIA) Diabetes: No Diminished Hearing: No Endocrine: No GERD: No Glaucoma: No Genitourinary: No Headaches: Yes Hepatitis: No Hiatal Hernia: No Hypertension: No Immune Disorder: No Kidney Stones: No Medical other: Yes (WORKING UP FOR MS) Musculoskeletal: Yes Neurologic: Yes (DEMYELINATION , hx mcgrath's palsy) Psychiatric: Yes Reproductive: No Respiratory: Yes Immunizations Current: Yes Migraines: Yes Radiation Therapy: No Renal Failure: No Seizures: No Sickle Cell Disease: No Sleep Apnea: No Thyroid Disease: Yes (GOITER) Influenza Vaccination: Yes ?: Not : 1 Para: 1 Past Surgical History Abdominal Surgery: No Arteriovenous Shunt: No Cardiac Surgery: No Ear Surgery: No Endocrine Surgery: No Eye Surgery: Yes (BILAT LASIK) Genitourinary Surgery: Yes (BLADDER TUCK) Gynecologic Surgery: Yes (HYSTERECTOMY) Hysterectomy: Yes Joint Replacement: No Oral Surgery: Yes Pacemaker: No Thoracic Surgery: No Other Surgery: Yes Social History Alcohol Use: No Tobacco Use: No Substance Use: No Allergies-Medications (Allergen,Severity, Reaction): Coded Allergies: metronidazole (Unverified Allergy, Severe, Hives from flagyl, 07/18/17) morphine (Unverified Allergy, Intermediate, Nausea/Vomiting, 07/18/17) ALSO SEVERE HEADACHE PER PT sulfamethoxazole (Unverified Allergy, Intermediate, RASH, 07/18/17) trimethoprim (Unverified Allergy, Intermediate, RASH, 07/18/17) Reported Meds & Prescriptions Reported Meds & Active Scripts Active Aspirin 81 Mg Chew 324 Mg CHEW DAILY Topamax (Topiramate) 25 Mg Tab 25 Mg PO Q12HR Review of Systems Except as stated in HPI: all other systems reviewed are Neg Physical Exam Narrative GENERAL: Well-nourished, well-developed patient. SKIN: Focused skin assessment warm/dry. HEAD: Normocephalic. EYES: No scleral icterus. No injection or drainage. NECK: Supple, trachea midline. No JVD or lymphadenopathy. CARDIOVASCULAR: Regular rate and rhythm without murmurs, gallops, or rubs. RESPIRATORY: Breath sounds equal bilaterally. No accessory muscle use. MUSCULOSKELETAL: No cyanosis, or edema. Left foot-point tenderness to the heel, mild tenderness to palpation to the foot without deformities, ecchymosis, or edema. Neurovascular intact Left knee-no tenderness to palpation of the knee. Full range of motion. No clicks or pops. No deformities or, ecchymosis or edema. BACK: Nontender without obvious deformity. No CVA tenderness. Data Data Last Documented VS Vital Signs Date Time Temp Pulse Resp B/P (MAP) Pulse Ox O2 Delivery O2 Flow Rate FiO2 07/18/17 17:05 98.8 86 18 122/62 (82) 95 MDM Medical Decision Making Medical Screen Exam Complete: Yes Emergency Medical Condition: Yes Differential Diagnosis Left foot plantar fasciitis, heel spur, foot fracture, foot sprain, stress fracture, foot contusion Narrative Course 51-year-old female disabled with MS presents emergency department complaining of left heel and foot pain for 1-2 weeks. Says pain has been worsening over the last several days and has developed left knee pain so she decided to come into the emergency department for evaluation. Patient states that she is waiting for an appointment with her primary care physician has been unable to be evaluated by them. Vital signs are stable. Physical exam findings consistent with plantar fasciitis. I did offer a x-ray to evaluate for possible heel spur however, I advised that this would not change my management based off of history and physical. Advised on therapy for her foot. Advised to follow-up with a primary care physician. Consider podiatry. Consider physical therapy. Return for worsening or persistent symptoms. Diagnosis Primary Impression: Plantar fasciitis of left foot Referrals: Academic Affairs Director Primary Care Physician Additional Instructions: Use ice or heat for symptom relief. If no contraindications, you may use Tylenol or Motrin per package instructions for your pain. Elevate the foot above the heart to reduce swelling. If symptoms persist or worsen, return to the emergency department. Follow up with your primary care physician within 2 days. I recommend stretching before bed and prior to standing up in the morning. Stretch throughout the day as well to reduce pain. Roll the arch of her foot on frozen water bottles or Coke several times daily. Avoid excessive standing or repetitive use. Consider follow-up with the insole reinforcer for further evaluation and treatment. Disposition: 01 DISCHARGE HOME Condition: Stable Gela Mujica July 18, 2017 17:36
== END 2017-07-18 17:49 | disposition home or self-care (01) ==
LOC: PHEFT 17:01
DX: M72.2 Plantar fascial fibromatosis (principal); M25.562 Pain in left knee; M06.9 Rheumatoid arthritis, unspecified; F32.9 Major depressive disorder, single episode, unspecified; F41.9 Anxiety disorder, unspecified; E78.00 Pure hypercholesterolemia, unspecified; G35 Multiple sclerosis; E04.9 Nontoxic goiter, unspecified; Z86.73 Personal history of transient ischemic attack (TIA), and cerebral infarction without residual deficits
CPT/HCPCS: 99282